=== PATIENT | female | born 1945 | race Caucasian/White ===

== ENCOUNTER → 2017-07-20 | Outpatient (CLI) | payer OTHER | LOC: FIMAGING 10:01 | PROVIDERS: ATTEND Internal Medicine Hematology & Oncology | DX: Z12.31 Encounter for screening mammogram for malignant neoplasm of breast (principal); Z85.3 Personal history of malignant neoplasm of breast | CPT/HCPCS: G0202 ==

== ENCOUNTER → 2017-10-13 | Outpatient (CLI) | payer OTHER | LOC: FIMAGING 10:22 | PROVIDERS: ATTEND Internal Medicine Hematology & Oncology | DX: M81.0 Age-related osteoporosis without current pathological fracture (principal); E03.9 Hypothyroidism, unspecified; Z78.0 Asymptomatic menopausal state ==

== ENCOUNTER 2017-11-01 10:22 | Emergency (ER) | payer OTHER ==
--- NOTE | 2017-11-01 10:28 | EDPHY ---
H & P Time Seen by Provider: 11/01/17 10:25 HPI/ROS: CHIEF COMPLAINT: Cardiac arrest HISTORY OF PRESENT ILLNESS: The patient is unable to provide history as she is currently intubated unresponsive. She arrives in the emergency department emergently by paramedics after a witnessed cardiac arrest at home. The patient was observed collapse. Her contacted 911. Paramedics arrived and found the patient in a PE a rhythm. The patient had a Mark airway established. She had an IO in IV line established. She received multiple rounds of IV epinephrine without return of spontaneous circulation. The patient has been an asystolic rhythm for approximately 30 min per paramedics. REVIEW OF SYSTEMS: A comprehensive 10 point review of systems is unobtainable Source: EMS - Medical/Surgical History Other PMH: Past medical history: Hypertension - Physical Exam Exam: General Appearance: Obtunded, unresponsive Eyes: Fixed and dilated ENT, Mouth: Mucous membranes moist Respiratory: No spontaneous breathing Cardiovascular: No cardiac sounds appreciated Gastrointestinal: Abdomen is soft and nontender, no masses, bowel sounds normal Neurological: GCS 3 Skin: Warm and dry, no rashes Musculoskeletal: Neck is supple nontender Extremities: No gross deformity Allergies/Adverse Reactions: amoxicillin [Amoxicillin] Allergy (Verified 05/06/10 14:00) Rash levothyroxine sodium [From Synthroid] Allergy (Verified 05/06/10 14:01) vertigo Medical Decision Making ED Course/Re-evaluation: The patient presents to the ED after a witnessed cardiac arrest. She has been asystolic for 30 min. The patient received high quality CPR, an advanced airway and multiple rounds of IV epinephrine without return of spontaneous circulation. The patient had CPR continued upon arrival in the emergency department. Auscultation of her chest wall demonstrated breath sounds which were clear and equal bilaterally. The patient had no purposeful neurologic movement. She had asystole verified in 2 leads. Given the duration of her asystole, she was pronounced by myself at 10:24 a.m.. The patient's is en route to the emergency department. Social work and the turkey egg gatherer have been notified. Departure - Departure Clinical Impression: Cardiac arrest Referrals: Patient,NotPresent [Primary Care Provider] - As per Instructions
--- NOTE | 2017-11-01 13:26 | ASDISCHSUM ---
Discharge Information Plan Status: Medically Cleared to Leave: Discharge Date: CM D/C Disposition: ADT D/C Disposition: Projected Discharge Date: Transportation at D/C:None or Unknown Discharge Delay Reason: Follow-Up Date: Discharge Slot: Final Diagnosis: Placement Information Patient Contact Information Contact Name:OSIRIS Relationship: Address:[address] [place] [address] Work Phone: City:[facility] Phone: State/Zip Code:[place] [address] Email: Financial Information Financial Class: Primary Plan Desc:MEDICARE OUTPATIENT Primary Plan Number:[id number] Secondary Plan Desc: Secondary Plan Number:[id number] Assessment Information [facility] CM Progress Note CM Note CM Note Notes: Patient brought into ED via EMS in cardiac arrest and with CPR in progress. Patient was pronounced shortly after arrival to the ED. TYRA and OLENA said they offered for , Dawit, to be transported by a [employer] Officer or other staff, but Dawit insisted he was okay to drive himself to the ED. This CM met Dawit at the ED entrance and supported him in the family room before being brought back to the room to see patient. Dr Croft accompanied Dawit to the room and provided support and answered all questions Dawit had at the time. chaplain Anne was also present. This CM and Gage provided emotional support and assistance in any we could. Dawit stated that he and the patient have a daughter, Irasema, who lives in [place]. This CM and Gage offered to assist in calling Irasema, but Dawit wanted to wait and call Irasema at a later time. Dawit spoke about him and the patient's 50 year marriage, daughter and their two beloved parrots. Patient was provided a list of local mortuaries and homes and stated he would not be able to make a decision today and that it was okay for patient to be transported to the [facility]. Patients friends and slag expander arrived later and said they will help transport Dawit back home in his car. CM available for further assistance. Date Signed: 11/01/2017 01:24 PM Electronically Signed By:Sandra Sjoden, RN Intervention Information
== END 2017-11-01 14:55 | disposition expired ==
LOC: EDUNIT#
DX: I46.9 Cardiac arrest, cause unspecified (principal); I10 Essential (primary) hypertension